=== PATIENT | female | born 1955 | race Caucasian/White ===

== ENCOUNTER → 2016-12-12 | Outpatient (CLI) | payer OTHER | END | disposition home or self-care (01) | LOC: KCIC MAMMO 14:05 | PROVIDERS: ATTEND Family Medicine | DX: Z12.31 Encounter for screening mammogram for malignant neoplasm of breast (principal) | CPT/HCPCS: G0202; 77067 ==

== ENCOUNTER → 2019-08-19 | Outpatient (CLI) | payer OTHER ==
--- NOTE | 2019-08-19 17:20 | KCIC ---
Bilateral digital screening mammograms: Reason for examination: Routine screening. Comparison is made to previous studies dated 12/25/2016 and 12/12/2016. Interpretation was made with the benefit of CAD. The skin and nipples show no abnormalities. No abnormal axillary lymph nodes are seen. The breast parenchyma shows scattered fibroglandular density. (Breast density: Category B.) There continues to be some nodularity in the lower outer quadrant of the left breast which is unchanged. There are no new dominant masses, suspicious calcifications or architectural distortions. Impression: No evidence of malignancy. Recommend routine screening. BI-RADS Category 2: Benign. "Our facility is accredited by the [employer] Mammography [employer]." This patient's information has been entered into a reminder system for the patient to be notified with the results of her examination and a target date for the next mammogram. Electronically signed by: Torrie Norris MD (08/19/2019 5:17 PM) [facility]
== END | disposition home or self-care (01) ==
LOC: KCIC MAMMO 15:00
PROVIDERS: ATTEND Family Medicine
DX: Z12.31 Encounter for screening mammogram for malignant neoplasm of breast (principal); N64.89 Other specified disorders of breast
CPT/HCPCS: 77067

== ENCOUNTER → 2020-09-05 | Outpatient (CLI) | payer OTHER ==
--- NOTE | 2020-09-05 11:59 | KCIC ---
Bilateral digital screening mammograms: Reason for examination: Routine screening. Comparison is made to previous studies dated back to 09/10/2013. Interpretation was made with the benefit of CAD. The skin and nipples show no abnormalities. No abnormal axillary lymph nodes are seen. The breast parenchyma is heterogeneously dense. (Breast density: Category C.) There are small circumscribed nodules anteriorly in the left breast a to be similar to previous examination. There are however additional new nodule seen in the right breast anterior centrally on cc view measuring 3.6 and 3.1 mm in greatest dimensions at approximately the 12:30 B and 6:00 B positions respectively. These may represent small cysts but recommend further evaluation with ultrasound. There are no other new dominant masses, suspicious calcifications or architectural distortion. Impression: Small nodules which appear to be at approximately the 12:30 B and 6:00 B positions of the right breast and measure approximately 3.6 and 3.1 mm in greatest dimensions respectively. Recommend further evaluation with ultrasound. Your patient's mammogram demonstrates that she has dense breast tissue (breast density category C or D), which could hide abnormalities, and if she has other risk factors for breast cancer that have been identified, she might benefit from supplemental screening tests that may be suggested by you as her ordering physician. Dense breast tissue, in and of itself, is a relatively common condition. Therefore, this information is not provided to cause undue concern, but rather to raise your awareness and to promote discussion with your patient regarding the presence of other risk factors, in addition to dense breast tissue. Your patient's mammography results will be sent to her. BI-RAD Category 0: Incomplete. Needs additional imaging evaluation. "Our facility is accredited by the [employer] Mammography Program." This patient's information has been entered into a reminder system for the patient to be notified with the results of her examination and a target date for the next mammogram. Electronically signed by: Torrie Norris MD (09/05/2020 11:56 AM) [email or web address]
== END ==
LOC: KCIC MAMMO 10:34
PROVIDERS: ATTEND Family Medicine
DX: Z12.31 Encounter for screening mammogram for malignant neoplasm of breast (principal); N64.89 Other specified disorders of breast
CPT/HCPCS: 77067

== ENCOUNTER → 2020-09-12 | Outpatient (CLI) | payer OTHER ==
[~2020-09-12] MED LIST: AMLO-187 PO; ASPI-630 PO; ATOR20TA58 PO; CARV6.2511 PO; CELE200C PO; FENO160T PO; GABA-585 PO; HYDR-2145 PO; INSU300I SQ; IOHEXOL 240 MG/ML 50ML VIAL. PO ONE; IOHEXOL 300 MG/ML 100ML VIAL. IV ONE; IRBE300T23 PO; LIRA0.6P2 SQ; METF500T16 PO; MONT10TA49 PO; OMEP40CA45 PO; WARF2TAB96 PO
--- NOTE | 2020-09-12 11:23 | KCIC ---
CT ABD PELV W/ORAL IV CONTRAST Indication: Left-sided abdominal pain for 1 to 2 years Technique: Postcontrast CT imaging was performed of the abdomen pelvis, multiplanar reconstruction images submitted. Oral contrast was also given. One or more of the following individualized dose reduction techniques were utilized for this examination: 1. Automated exposure control 2. Adjustment of the mA and/or kV according to patient size 3. Use of iterative reconstruction technique. Comparison: None available Findings: There is a hypodense lesion of the neck/proximal body of the pancreas about 4 cm transverse by 2.8 cm AP by about 3.1 cm CC, adjacent focus of hypodensity just distally about 2.7 cm transverse by 2.4 cm AP by 1.4 cm CC. Internal density measurements are more cystlike about 10 Hounsfield units of the more proximal larger focus, about 28 Hounsfield units of more distal focus greater than simple fluid. There is likely hepatic steatosis. There are some splenic granulomas. Gallbladder is surgically absent. Common bile duct measures about 1 cm although sometimes be normally seen after cholecystectomy. Both kidneys enhance, no hydronephrosis. There is a hypodense lesion of the inferior left kidney about 1.1 cm, density measurements of a cyst. There is a hypodense lesion of the inferior right kidney about 2.9 cm, density measurements suggestive of a cyst. Small 0.4 cm hypodense lesion of the mid lateral right kidney is too small to further accurately characterize. There are a couple of small hypodense foci of the mid and superior left kidney too small to further accurately characterize, largest of these about 0.5 cm. There is mild plaque of the abdominal aorta, also some plaque of the iliac arteries bilaterally. The bowel is not significantly dilated. There is no free fluid or free air. Normal caliber appendix is visualized without adjacent inflammatory change. There is fairly severe sigmoid diverticulosis, minimally of the descending colon. There is no significant inflammatory type change about the bowel. There is very small hiatal hernia. There is multilevel lumbar facet degenerative change. There is multilevel thoracolumbar degenerative disc disease with variable vacuum phenomena. There is degree of interbody fusion at L1-2 and L2-3. There is multilevel variable lateral recess stenosis greatest at L3-4 and L4-5. There is moderate to severe levoscoliosis centered near L2. There is mild right lateral subluxation L1 relative to L2 and T12 relative to L1, mild left lateral subluxation of L3 relative L4. There is multilevel thoracolumbar neural foramina compromise, more significant narrowing on the left at L5-S1, L4-5, and T9-10 and on the right at L1-L2, L2-3, and L3-4. IMPRESSION: 1. There are hypodense pancreatic lesions for which MR characterization is advised, could be partially cystic pancreatic masses. 2. There is colonic diverticulosis greatest of the sigmoid colon, no significant adjacent inflammatory change. 3. There is lumbar levoscoliosis. There is multilevel thoracolumbar degenerative disc disease and facet degenerative change, variable lateral recess stenosis greatest at L3-4 and L4-5. There is multilevel thoracolumbar neural foramina compromise. 4. There are bilateral renal cysts, also a few other small hypodense foci of the kidneys too small to further accurately characterize. Electronically signed by: Moiz Briseno MD (09/12/2020 11:20 AM) [facility]
== END ==
LOC: KCIC CT 08:01
PROVIDERS: ATTEND Family Medicine
DX: K57.30 Diverticulosis of large intestine without perforation or abscess without bleeding (principal); K86.89 Other specified diseases of pancreas; D73.89 Other diseases of spleen; N28.1 Cyst of kidney, acquired; N28.89 Other specified disorders of kidney and ureter; I70.0 Atherosclerosis of aorta; I70.8 Atherosclerosis of other arteries; K44.9 Diaphragmatic hernia without obstruction or gangrene; M47.815 Spondylosis without myelopathy or radiculopathy, thoracolumbar region; M51.34 Other intervertebral disc degeneration, thoracic region; M41.86 Other forms of scoliosis, lumbar region; M48.07 Spinal stenosis, lumbosacral region; M48.04 Spinal stenosis, thoracic region; M43.5X6 Other recurrent vertebral dislocation, lumbar region; Z90.49 Acquired absence of other specified parts of digestive tract
CPT/HCPCS: 74177; Q9966; Q9967

== ENCOUNTER → 2020-09-13 | Outpatient (CLI) | payer OTHER ==
[~2020-09-13] MED LIST changes: -IOHEXOL 240 MG/ML 50ML VIAL. PO ONE; -IOHEXOL 300 MG/ML 100ML VIAL. IV ONE
--- NOTE | 2020-09-14 12:01 | RAD ---
DATE: 09/13/2020 EXAM: BREAST RIGHT HISTORY: Recall from screening mammogram for right breast masses. COMPARISON: Screening mammogram 09/05/2020 TECHNIQUE: Grayscale and color Doppler ultrasound of the right breast was performed in the areas of concern. FINDINGS: At 6:00, 3 cm from the nipple there is an ovoid hypoechoic mass measuring 4 x 3 x 2 mm. This has possible angular margins on a few images. This is parallel in orientation. No posterior acoustic shadowing or blood flow. At 12:30, 7 cm from the nipple there is a possible benign lymph node with fatty hilum versus normal fibroglandular tissue measuring 1.2 x 0.4 x 0.6 cm. No suspicious mass at 12:30. No abnormal lymph nodes in the right axilla. IMPRESSION: Mildly suspicious right breast mass at 6:00 3 cm from the nipple. Six-month follow-up versus biopsy were discussed with the patient, who would like to proceed with biopsy at this time. BI-RADS CATEGORY: 4 SUSPICIOUS ABNORMALITY- BIOPSY SHOULD BE CONSIDERED RECOMMENDED FOLLOW-UP: BIO BIOPSY RECOMMENDED
== END ==
LOC: US 13:27
PROVIDERS: ATTEND Family Medicine
DX: R92.8 Other abnormal and inconclusive findings on diagnostic imaging of breast (principal); N63.14 Unspecified lump in the right breast, lower inner quadrant
CPT/HCPCS: 76641

== ENCOUNTER → 2020-09-19 | Outpatient (CLI) | payer OTHER ==
[~2020-09-19] MED LIST changes: +GADOTERATE 7.5 MMOL/15ML VIAL. IVP ONE
--- NOTE | 2020-09-19 14:59 | KCIC ---
ABDOMEN WO/W CONTRAST Clinical Indication: Reason: CYST ON PANCREAS Comparison: CT abdomen and pelvis with contrast September 12, 2020. TECHNIQUE: Routine multiplanar multiple pulse sequence images of the abdomen are obtained before and after 22 cc of Clariscan IV contrast. Findings: There is a cluster of cysts of the pancreas body. In conglomerate this measures up to 3.1 cm AP by 4.2 cm transverse by 4.4 cm craniocaudal. The largest individual cyst measures 3.1 x 4.1 cm and demonstrates intermediate T1 signal which may be due to proteinaceous or mucinous content. The cysts do not demonstrate any postcontrast enhancement. No mural nodularity is seen. The pancreatic duct is normal caliber. A few tiny cysts are seen in the pancreas tail measuring about 3 mm. There are bilateral renal cysts that do not require follow-up. No hydronephrosis. Adrenal glands are normal. The spleen is normal. A few tiny cysts are seen in the liver. There is no fatty infiltration of the liver. Moderate left convexity lumbar scoliosis. IMPRESSION: Cluster of cysts in the pancreas body. The largest cyst has intermediate T1 signal which may be due to proteinaceous or mucinous content. The cysts do not enhance. The pancreatic duct is normal caliber. Differential considerations include pancreatic cystadenoma, mucinous or serous, less likely pancreatic pseudocysts. Electronically signed by: Saad Douglas MD (09/19/2020 2:56 PM) [id number]
== END ==
LOC: KCIC MRI 09:52
PROVIDERS: ATTEND Family Medicine
DX: K86.2 Cyst of pancreas (principal); N28.1 Cyst of kidney, acquired; K76.89 Other specified diseases of liver
CPT/HCPCS: 74183; A9575

== ENCOUNTER → 2020-11-08 | Outpatient (CLI) | payer OTHER ==
[~2020-11-08] MED LIST changes: -GADOTERATE 7.5 MMOL/15ML VIAL. IVP ONE
--- NOTE | 2020-11-08 10:16 | RAD ---
Examination: MG DIAGNOSTICUNILAT MAMMO, US GDE NDL BX/ASPIR/INJ/LOC History: POST SONO BX/RIGHT BREAST MASS Comparison/Correlation: 09/13/2020) ultrasound Findings: Risks, benefits, and alternatives regarding ultrasound-guided right breast biopsy on the 6: 00 mass at the anterior right breast were discussed with the patient and informed consent was obtaine d. Cleansing with ChloraPrep at the anticipated site of needle placement was performed. Sterile drapi ng, sterile gel, and sterile probe cover is were utilized. Approximately 8 cc of 1 percent lidocaine was administered subcutaneously and along the expected course of the needle tracks. Lateral approach was utilized. Scalpel incision was made. A 20-gauge spinal needle was utilized and p laced into the mass. It did not change significantly and was confirmed to be solid. Introducer was th en placed. 12-gauge core biopsy needle was utilized and 4 samples were obtained. Biopsy clip marker w as then placed. Specimens were placed in formalin and submitted to the lab. Visual diagnostic MLO and CC images of the right breast were then obtained demonstrating the clip mar ker to be in the 6:00 region at the anterior to midportion of the right breast. No hematoma. Scattere d fibroglandular densities are present. Impression: Successful right breast mass biopsy. The patient tolerated the procedure well without any immediate c omplications. Electronically signed by: Armani Montanez MD (11/08/2020 10:13 AM) [email or web address]
--- NOTE | 2020-11-10 15:20 | PATHOLOGY ---
[facility] Accession Number: [id number] . 01 Material submitted: . breast - RIGHT BREAST TISSUE, 6:00, 3CMFN. Modifiers: right, 6:00 . 02 Diagnosis: Breast tissue, right breast mass 6:00 needle biopsies: - Stromal fibrosis with focal mild duct ectasia, cystic change, and recent hemorrhage. - Few microcalcifications identified. (JPM:[facility] 11/10/2020) [facility] 11/10/2020 0927 Local . 02 Comment: There is no atypia or evidence of malignancy. Please correlate with mammographic findings. (JPM:[facility] 11/10/2020) . 02 Electronically signed: . Chang Thrasher MD, Pathologist NPI- [id number] . 01 Gross description: . Received in formalin labeled "Harjinder Tomlinson, right breast 6:00 3 cm FN" are multiple fragments of cano-yellow fibroadipose tissue measuring in aggregate 1.5 x 0.5 x 0.2 cm. The specimen is submitted entirely in cassettes A1-A3. The specimen is removed from the patient at 0927 and placed in formalin at 0928 on 11/08/2020. The specimen is removed from formalin at 1850 on 11/09/2020. ([facility]; 11/09/2020) [facility] 11/09/2020 1551 Local . 02 Pathologist provided ICD-10: N60.31, N60.41 . 02 CPT . 060679 Specimen Comment: A courtesy copy of this report has been sent to [phone], [phone] Specimen Comment: [id number], Specimen Comment: Report sent to ,DR PAUL / DR GAYTAN Performed at: 01 [facility] [address], [place], [place] [id number] MD Judd Porras MD Phone: [phone] Performed at: 02 [facility] [address] [place], [place] [id number] MD Chang Thrasher MD Phone: [phone]
== END | disposition home or self-care (01) ==
LOC: US 08:27
PROVIDERS: ATTEND Surgery
DX: N63.14 Unspecified lump in the right breast, lower inner quadrant (principal); N60.31 Fibrosclerosis of right breast; N60.41 Mammary duct ectasia of right breast; Z79.82 Long term (current) use of aspirin; Z79.4 Long term (current) use of insulin; Z79.899 Other long term (current) drug therapy; Z88.2 Allergy status to sulfonamides; Z88.5 Allergy status to narcotic agent; Z98.890 Other specified postprocedural states
CPT/HCPCS: 19083; 77065; 88305; C1713; 19081; 76942

== ENCOUNTER → 2021-10-23 | Outpatient (CLI) | payer OTHER ==
[~2021-10-23] MED LIST changes: -OMEP40CA45 PO; +OMEP40CA7 PO
--- NOTE | 2021-10-23 12:01 | KCIC ---
Bilateral digital screening mammograms with 3-D tomosynthesis: Reason for examination: Routine screening. Comparison is made to previous studies dated back to 12/12/2016. Bilateral mammograms in CC and oblique projections were obtained with 2-D imaging and 3-D tomosynthes is imaging on a [employer] Inspiration unit and reviewed on the workstation. Interpretation was made with the benefit of CAD. The skin and nipples show no abnormalities. No abnormal axillary lymph nodes are seen. The breast par enchyma is predominantly fatty. (Breast density: Category A.) There continue to be small nodular dens ities bilaterally which are stable. There are no new dominant masses, suspicious calcifications or ar chitectural distortion. Biopsy clip remains present on the right. Impression: No evidence of malignancy. Recommend routine screening. BI-RAD Category 2: Benign. "Our facility is accredited by the [employer] Mammography Program." This patient's information has been entered into a reminder system for the patient to be notified wit h the results of her examination and a target date for the next mammogram. Electronically signed by: Torrie Norris MD (10/23/2021 11:58 AM) [email or web address]
== END ==
LOC: KCIC MAMMO 09:23
PROVIDERS: ATTEND Family Medicine
DX: Z12.31 Encounter for screening mammogram for malignant neoplasm of breast (principal)
CPT/HCPCS: 77063; 77067

== ENCOUNTER → 2021-11-26 | Outpatient (CLI) | payer OTHER ==
--- NOTE | 2021-11-26 15:37 | KCIC ---
AP and Lateral Views of the Chest 11/26/2021 2:59 PM Indication: Reason: BRONCHITIS, COUGH, 3 WEEKS, SOA, COPD, SMOKER Comparison: None Findings: Calcified granuloma noted in the left midlung. There is no acute focal consolidation or inf iltrate identified. Heart size is normal. There is no evidence of pneumothorax or pleural effusion. N o acute osseous abnormalities are identified. Impression: No evidence of acute cardiopulmonary process. Electronically signed by: Laron Boo MD (11/26/2021 3:34 PM) [id number]
== END ==
LOC: KCIC 14:56
PROVIDERS: ATTEND Nurse Practitioner Family
DX: J84.10 Pulmonary fibrosis, unspecified (principal); J40 Bronchitis, not specified as acute or chronic; R05.9 Cough, unspecified; R06.02 Shortness of breath; J44.9 Chronic obstructive pulmonary disease, unspecified; F17.200 Nicotine dependence, unspecified, uncomplicated
CPT/HCPCS: 71046

== ENCOUNTER → 2021-12-21 | Outpatient (CLI) | payer OTHER ==
--- NOTE | 2021-12-21 09:44 | RAD ---
EXAM: CT Chest without IV contrast CLINICAL HISTORY: chest pain, SOA COMPARISON: MRI 09/19/2020 TECHNIQUE: CT of the chest without intravenous contrast. Axial, coronal and sagittal reformatted imag es were generated. ---PQRS compliance statement - One or more of the following individualized dose reduction techniques were utilized for this study: 1. Automated exposure control 2. Adjustment of the mA and/or kV according to patient size 3. Use of iterative reconstruction technique--- FINDINGS: Lack of intravenous contrast limits evaluation of solid organs, vasculature, and lymph nodes. Chest: Thyroid is unremarkable. No mediastinal or hilar lymphadenopathy. Calcified hilar and mediastinal lym ph nodes. Calcified left granuloma. Heart is not enlarged. No pericardial effusion. Coronary calcifications. Small hiatal hernia. No suspicious lung nodule or mass is seen. No lobar consolidation. Visualized Upper abdomen: Cholecystectomy clips are seen. Low-density pancreatic neck lesion measures 4.2 x 3.2 cm Bones: Decrease overall density. No aggressive osseous lesion. Multilevel degenerative changes of spi ne are seen. IMPRESSION: No suspicious lung nodule or mass is seen Low-density pancreatic neck lesion measures 4.2 x 3.2 centimeters, better assessed on prior MRI abdom en. In general this is grossly stable. Electronically signed by: Canelo Piper MD (12/21/2021 9:41 AM) [facility]
== END ==
LOC: CT 09:07
PROVIDERS: ATTEND Family Medicine
DX: J84.10 Pulmonary fibrosis, unspecified (principal); R07.9 Chest pain, unspecified; R06.02 Shortness of breath; I25.10 Atherosclerotic heart disease of native coronary artery without angina pectoris; K44.9 Diaphragmatic hernia without obstruction or gangrene
CPT/HCPCS: 71250